=== PATIENT | female | born 1995 | race Caucasian/White ===

== ENCOUNTER 2020-09-29 22:24 | Emergency (ER) | payer OTHER ==
[~2020-09-29] VITALS: Ht 172.7 cm; Wt 72.6 kg
[~2020-09-29 22:24] MED LIST: ACUTANE
[2020-09-29] MEDS ORDERED: DEXAMETHASONE SOD PHOSPHATE 4 MG/ML VIAL IM ONE (23:30)
[2020-09-29] MEDS ORDERED: DEXAMETHASONE SOD PHOSPHATE 10 MG/ML VIAL ONE (23:42)
--- NOTE | 2020-09-30 00:09 | NUR ---
Patient discharged to home in stable condition. Written and verbal after care instructions given. Patient verbalizes understanding of instruction. ambulatory with a steady gait noed. Pt aaox4 no acute distress noted, resp even and unlabored. pt verbalize relief of difficulty swallowing and periorbital swelling.
[2020-09-30 00:11] VITALS: BP 123/67
== END 2020-09-30 00:11 | disposition home or self-care (01) ==
LOC: ER 23:02
DX: T78.1XXA Other adverse food reactions, not elsewhere classified, initial encounter (principal); J45.909 Unspecified asthma, uncomplicated; X58.XXXA Exposure to other specified factors, initial encounter
CPT/HCPCS: 96372; 99283; J1100